=== PATIENT | male | born 1980 | race Caucasian/White ===

== ENCOUNTER 2021-03-02 21:40 | Emergency (ER) | payer OTHER ==
[~2021-03-02 21:40] MED LIST: NAPROSYN500 MG PO
== END 2021-03-03 01:04 | disposition home or self-care (01) ==
LOC: ER1 21:40
DX: M54.2 Cervicalgia (principal); F17.210 Nicotine dependence, cigarettes, uncomplicated
CPT/HCPCS: 99283

== ENCOUNTER → 2021-05-17 | Outpatient (CLI) | payer OTHER | LOC: KOH-I 08:27 | DX: S14.129A Central cord syndrome at unspecified level of cervical spinal cord, initial encounter (principal); M40.202 Unspecified kyphosis, cervical region | CPT/HCPCS: 72125 ==

== ENCOUNTER → 2021-08-03 | Outpatient (CLI) | payer OTHER | LOC: KOH-I 08:41 | DX: M54.50 Low back pain, unspecified (principal); M47.816 Spondylosis without myelopathy or radiculopathy, lumbar region | CPT/HCPCS: 72100 ==

== ENCOUNTER → 2021-12-22 | Outpatient (CLI) | payer OTHER | LOC: EMI 12:51 | DX: M47.22 Other spondylosis with radiculopathy, cervical region (principal); M48.02 Spinal stenosis, cervical region | CPT/HCPCS: 72141 ==